=== PATIENT | male | born 1975 | race Caucasian/White ===

== ENCOUNTER 2018-02-01 11:33 | Emergency (ER) | payer BC, OTHER ==
--- NOTE | 2018-02-01 12:07 | RAD ---
RIGHT HAND 3 VIEWS: HISTORY: Right hand injury. FINDINGS: Soft tissue laceration of the distal tip of the ring finger with a 0.4 cm minimally displaced ossific avulsion. No evidence of intraarticular extension. No metallic fragments. IMPRESSION: Osseous and soft tissue laceration with mild displacement distal tip right ring finger. POS: [facility]
[2018-02-01] MEDS ORDERED: CEFAZOLIN 1 GM VIAL ONE (12:15)
[2018-02-01] MEDS ORDERED: HYDROcodone/Acetaminophen 5/325 mg Tablet ONE (12:15)
[2018-02-01] MEDS ORDERED: Lidocaine 2% 10 ML INJ ONE (12:15)
[2018-02-01] MEDS ORDERED: Lidocaine 1% PF 5 ML VIAL ONE (12:21)
[2018-02-01] MEDS ORDERED: Sterile Water 10 ML ONE (12:42)
[2018-02-01] MEDS ORDERED: Adacel (T-DAP) 0.5 ML VIAL ONE (13:02)
[2018-02-01] MEDS ORDERED: Bacitracin Zinc 1 Packet ONE (13:08)
== END 2018-02-01 13:37 | disposition home or self-care (01) ==
LOC: ERS 11:33
DX: S62.634B Displaced fracture of distal phalanx of right ring finger, initial encounter for open fracture (principal); F17.220 Nicotine dependence, chewing tobacco, uncomplicated; W31.89XA Contact with other specified machinery, initial encounter
CPT/HCPCS: 12001; 90471; 90715; 96372; A4216; J0690; J2001

== ENCOUNTER 2022-04-24 11:19 | Outpatient (CLI) | payer OTHER ==
[2022-04-24 12:36] LABS: Bilirubin Neg (Negative); Blood, Urine 25 (Negative); Clarity Clear (Clear); Glucose, Urine (Dipstick) Normal (Negative); Ketone, Urine Negative (Negative); Leukocyte Negative (Negative); Nitrite Negative (Negative); Protein, Urine (Dipstick) Negative (Neg-Trace); Urobilinogen Normal mg/dL (Less than 2)
[2022-04-24 12:41] LABS: Hemoglobin 14.4 g/dL (13.5-17.5); Mean Corpuscular HGB CONC 34.9 g/dL (32.0-36.0); Mean Corpuscular Hemoglobin 31.8 pg (27.0-33.0); Mean Corpuscular Volume 91.2 fl (81.2-95.1); Mean Platelet Volume 9.9 fl (7.4-10.4); Platelet Count 282 10x3/uL (150-450); RBC Distribution Width 12.3 % (11.5-14.5); Red Blood Cell (RBC) Count 4.53 10x6/uL (4.32-5.72); White Blood Cell (WBC) Count 9.8 10x3/uL (3.5-10.5)
[2022-04-24 12:51] LABS: Bacteria/HPF None Seen HPF (None Seen); RBC/HPF 0-3 HPF (0-3); Squamous Epithelial 0-3 HPF (0-3); WBC/HPF None Seen HPF (0-3)
[2022-04-24 12:59] LABS: INR-International Normal Ratio 0.9; PTT 26.5 sec (22.0-33.0); Prothrombin Time 9.8 sec (9.5-12.1)
[2022-04-24 13:00] LABS: Anion Gap 13 mmol/L (10-20); BUN (Urea Nitrogen) 12 mg/dL (8.9-20.6); Calc. Creatinine Clearance 0 mL/min (70-130); Calcium 9.5 mg/dL (7.8-10.44); Carbon Dioxide 27 mmol/L (22-29); Chloride 104 mmol/L (98-107); Estimated GFR 109; Glucose 74 mg/dL (70-105); Potassium 4.2 mmol/L (3.5-5.1); Sodium 140 mmol/L (136-145)
== END 2022-04-24 11:20 | disposition home or self-care (01) ==
LOC: LABBT 11:19
PROVIDERS: ATTEND Urology
DX: Z01.818 Encounter for other preprocedural examination (principal); N13.2 Hydronephrosis with renal and ureteral calculous obstruction
CPT/HCPCS: 80048; 81001; 85027; 85610; 85730; 87086; 93005; 93010

== ENCOUNTER 2022-05-02 13:37 | Outpatient (CLI) | payer OTHER | END 2022-05-02 13:38 | disposition home or self-care (01) | LOC: BICCT 13:37 | PROVIDERS: ATTEND Urology | DX: N13.2 Hydronephrosis with renal and ureteral calculous obstruction (principal) | CPT/HCPCS: 74176 ==